=== PATIENT | male | born 1970 | race Caucasian/White ===

== ENCOUNTER 2019-09-23 08:23 | Day surgery (SDC) | payer OTHER, SELFPAY ==
[2019-09-17 10:13] VITALS: BMI 40.9
[2019-09-23] VITALS (13 sets, daily range): BP systolic 102–156; BP diastolic 64–93; PULSE 55–70; RESP 8–95; TEMP 35.9–36.7; O2SAT 16–97; BMI 39.6
[2019-09-23] MEDS: LACTATED RINGERS 1,000 ML 42 ML IV ×2 (08:50→11:25)
--- NOTE | 2019-09-23 09:32 | PM.PREOP ---
Pre-operative Note Interval Note History & Physical reviewed/Exam performed by Physician: Yes Changes to H&P: No
[2019-09-23] MEDS: MIDAZOLAM 2 MG/2 ML VIAL IV (09:57)
[2019-09-23] MEDS: fentaNYL 100 MCG/2 ML INJ 50 MCG IV (09:57)
--- NOTE | 2019-09-23 10:07 | SUR.PREOP ---
Block start time [0950] . Monitoring initiated and maintained throughout procedure. Oxygen and medications given per anesthesiologist instructions. Patient remained stable throughout procedure, no adverse reactions noted. Block end time [0957].
--- NOTE | 2019-09-23 10:15 | SUR.PREOP ---
To OR in stable condition.
[2019-09-23] MEDS: CEFAZOLIN 2 GM/100 ML FROZ.PIGGY IV (10:20)
[2019-09-23] MEDS: SODIUM CHLORIDE IRRIG SOLUTION 3,000 ML, EPINEPHrine 1 MG IRR (11:04)
[2019-09-23] MEDS: BUPIVACAINE 0.5% W/ EPI (PF) VIAL 30 ML INJ (11:07)
--- NOTE | 2019-09-23 11:18 | SUR.OPER ---
Lateral on padded OR bed with corey bag positioner, head on pillow, gel axillary roll in place, bottom leg bent with gel pad under hip to foot, upper leg flexed and supported with pillows between knees and feet. Operative arm secured in shoulder positioning suspension device. non-operative arm secured on padded arm board. Safety belt at hip, tape over blanket securing lower legs.
--- NOTE | 2019-09-23 11:59 | PM.OP.1 ---
Operative Date/Time/Diagnoses Date of procedure: 09/23/19 Time of procedure: 11:45 Pre-op diagnosis: Right shoulder high-grade partial-thickness rotator cuff tear Post-op diagnosis: other (Right shoulder glenoid labral articular disruption (GLAD lesion)) Procedure & Clinicians Procedure: Right shoulder arthroscopic labral repair Same procedure as scheduled: No Indications: The patient is a 49-year-old gentleman who injured himself at work. He presents for presumed arthroscopic rotator cuff repair after MRI showing a high-grade partial-thickness tear of the supraspinatus. There was some indications of an anterior labral abnormality but this was not noted by the radiologist. He is agreed to surgery after discussion the risks benefits and alternatives. Risks discussed included but were not limited to: Failure to improve, stiffness, infection, nerve damage, deep venous thrombosis, pulmonary embolism, stroke, myocardial infarction, permanent paralysis and . Surgeon: Devan Haile Dye Room Helper: Jeannie Collazo Click Yes if Unassisted: No Anesthesia Type: General, Peripheral nerve block and Local Operative Notes Findings: 1. Normal glenohumeral cartilage with the exception of the glenoid surface immediately next to the labral tear anteriorly 2. Tearing and fraying of the anterior inferior labrum 3. Intact glenohumeral ligaments 4. Intact subscapularis 5. Intact biceps tendon and insertion 6. Intact supraspinatus from the articular side 7. Intact infraspinatus 8. Normal axillary pouch 9. Normal appearing rotator cuff from the bursal surface 10. Normal acromion with no evidence of ?impingement lesion? 11. Acromioclavicular joint not visualized 12. Exam under anesthesia notable for normal range of motion and no evidence for pathologic laxity. Closure Type: primary Specimen(s): none sent Prosthetic devices, grafts, tissues, transplants, or devices: Two Mitek Lupine BR anchors Applied: implant(s) Estimated Blood Loss (mL): 10 Blood products transfused: none Procedure in detail: The patient was seen in the preoperative area where he identified his right shoulder as the operative site this was marked with my initials. He received preoperative antibiotics and underwent the induction of an interscalene block. Was taken to the operating room and placed on the operating room table in a supine position where he underwent induction with general anesthetic. Shoulder was examined under anesthesia with result given above. He was then repositioned in the left lateral decubitus position with an axillary roll and padding for all pressure points. He was stabilized in this position using the corey bag and adhesive tape. The right arm was prepared for the fingertips to the base the neck with ChloraPrep in the usual fashion and draped through sterile drapes. The right arm was placed in 10 lb of balanced skin suspension. Subcutaneous landmarks were outlined on the skin with a marking pen and portal sites were selected. The posterior portal was created for the arthroscope and an anterior superior portal was created for instrumentation and a small working cannula placed. I palpated the area of the anterior labral lesion and it was clear that this was pathologic. The fraying was debrided with shaver and the bone abraded to bleeding bone. We then repaired the labrum onto the face of the glenoid to cover the exposed bone using the 2 labral anchors and a suture passing technique. Care was taken to keep the knot stack off the articular surface. At the completion of this the arthroscope was withdrawn from the glenohumeral joint and placed in the subacromial bursa. I had carefully inspected the rotator cuff on the inferior surface. A bursectomy was performed superiorly and the shoulder internally and externally rotated in different degrees of abduction and there was no evidence for a bursal surface rotator cuff tear. At this point all arthroscopic equipment was removed. The wounds were closed with 4 0 Monocryl and Steri-Strips. The subcutaneous tissues were injected with 0.25% Marcaine for postoperative pain control. Dressings of sterile 4x4s, an ABD and an adhesive dressing were applied. The patient's arm was placed in a sling and he was transported to the recovery room in good condition having tolerated the procedure well. Complications: none Post-operative Condition: stable Disposition: PACU Plan for aftercare: The patient will be maintained on a standard [employer] repair protocol. He will be discharged home this afternoon.
[2019-09-23] MEDS: fentaNYL 100 MCG/2 ML INJ IV (12:11)
[2019-09-23] MEDS: hydrOXYzine pamoate 25 MG CAPSULE PO ×2 (12:11→13:51)
[2019-09-23] MEDS: HYDROMORPHONE 2 MG INJ IV (12:35)
[2019-09-23] MEDS: HYDROCODONE/ACET 5/325 TABLET 2 TAB PO (12:49)
--- NOTE | 2019-09-23 13:56 | SUR.OPER ---
1211: 50mcg of fentanyl was administered per MD order. Shortly thereafter pts became sleeping with his HR dipping into the mid 30's. Pt was aroused and HR increased to mid 50's. It was reported that pt was very sensitive to fentanyl during procedure. Switched to diluadid and PO medications for better coverage.
== END 2019-09-23 14:15 | disposition home or self-care (01) ==
PROVIDERS: Visit Provider Orthopaedic Surgery
PROC: (CPT 29827; principal; 2019-09-23 10:15)
DX: S43.431A Superior glenoid labrum lesion of right shoulder, initial encounter (principal); S46.911A Strain of unspecified muscle, fascia and tendon at shoulder and upper arm level, right arm, initial encounter; G89.18 Other acute postprocedural pain
CPT/HCPCS: 29806; 29822; 64415; 64450; J0171; J0330; J0690; J1100; J1170; J2250; J2405; J2704; J3010